=== PATIENT | female | born 1955 | race Caucasian/White ===

== ENCOUNTER → 2019-09-28 | Outpatient (CLI) | payer OTHER ==
[2019-09-28 10:39] LABS: URINE APPEARANCE HAZY; URINE BILIRUBIN NEGATIVE (NEGATIVE); URINE BLOOD 250 ery/uL (NEGATIVE); URINE COLOR YELLOW; URINE GLUCOSE NEGATIVE (NEGATIVE); URINE KETONE NEGATIVE (NEGATIVE); URINE LEUKOCYTE ESTERASE NEGATIVE (NEGATIVE); URINE NITRATE NEGATIVE (NEGATIVE); URINE PROTEIN(semi-quant) TRACE mg/dL (NEGATIVE); URINE UROBILINOGEN NORMAL (NORMAL)
== END ==
LOC: LAB 10:13
PROVIDERS: Nurse Practitioner
DX: R30.0 Dysuria (principal)

== ENCOUNTER 2024-02-14 08:00 | Outpatient (RCR) | payer MEDICARE | END 2024-03-10 | LOC: PT | DX: M76.61 Achilles tendinitis, right leg (principal) ==

== ENCOUNTER 2024-03-11 08:00 | Outpatient (RCR) | payer MEDICARE | END 2024-04-10 | disposition home or self-care (01) | LOC: PT | DX: M76.61 Achilles tendinitis, right leg (principal) ==